=== PATIENT | female | born 1980 | race Caucasian/White ===

== ENCOUNTER 2016-10-24 08:03 | Emergency (ER) | payer OTHER, SELFPAY ==
[2016-10-24 08:14] VITALS: BMI 26.4
--- NOTE | 2016-10-24 08:27 | ED PDOC ---
Arrival/HPI - General Time Seen by Provider: 10/24/16 08:19 Historian: Patient - History of Present Illness Narrative History of Present Illness (Text): 10/24/16 08:15 A 36 year old female, whose past medical history includes Tonsillectomy, presents to the emergency room with complaints of skin blotches for a few hours. Patient reports that she woke up with chest pain and skin blotches on her left back, left lateral chest wall, and left breast. Patient notes that she has endured a significant amount of stress lately. Patient states that she had chicken pox as a child. Patient denies any headaches, dizziness, shortness of breath, fever, nausea, vomiting, diarrhea, or any other complaints. Time/Duration: 1-3 hours Symptom Onset: Sudden Symptom Course: Unchanged Quality: Other (Pain) Severity Level: Moderate Activities at Onset: Rest Context: Home Past Medical History - Provider Review Nursing Documentation Reviewed: Yes - Cardiac Hx Heart Murmur: Yes - Musculoskeletal/Rheumatological Hx Falls: No - Gastrointestinal Hx Gastroesophageal Reflux: (history of ulcerative colitis) - Psychiatric Hx Anxiety: Yes Hx Substance Use: No - Past Surgical History Past Surgical History: No Previous - Surgical History Hx Tonsillectomy: Yes - Suicidal Assessment Feels Threatened In Home Enviroment: No Family/Social History - Physician Review Nursing Documentation Reviewed: Yes Family/Social History: No Known Family HX Smoking Status: Never Smoked Hx Alcohol Use: No Hx Substance Use: No Hx Substance Use Treatment: No Allergies/Home Meds Allergies/Adverse Reactions: Allergies No Known Allergies Allergy (Verified 10/24/16 08:13) Home Medications: Home Meds Medication Instructions Recorded Confirmed No Known Home Med 10/24/16 10/24/16 Review of Systems - Physician Review All systems were reviewed & negative as marked: Yes - Review of Systems Constitutional: absent: Fevers Cardiovascular: Chest Pain (Due to blotches on skin) Gastrointestinal: absent: Diarrhea, Nausea, Vomiting Skin: Other (Skin blotches on the left back, left lateral chest wall, and left breast.) Neurological: absent: Headache, Dizziness Physical Exam Vital Signs Reviewed: Yes Temperature: Afebrile Pulse: Regular Respiratory Rate: Normal Appearance: Positive for: Well-Appearing, Non-Toxic, Comfortable Pain Distress: Mild Mental Status: Positive for: Alert and Oriented X 3 - Systems Exam Head: Present: Atraumatic, Normocephalic Mouth: Present: Moist Mucous Membranes Neck: Present: Normal Range of Motion Respiratory/Chest: Present: Clear to Auscultation, Good Air Exchange. No: Respiratory Distress, Accessory Muscle Use Cardiovascular: Present: Regular Rate and Rhythm Abdomen: Present: Normal Bowel Sounds. No: Tenderness, Distention, Peritoneal Signs Upper Extremity: Present: Normal Inspection. No: Cyanosis, Edema Lower Extremity: Present: Normal Inspection. No: Edema Neurological: Present: GCS=15, CN II-XII Intact, Speech Normal Skin: Present: Rashes (Scattered vesicular rashes in dermatome distribution around the left mid-back, left lateral chest wall, and left breast.) Psychiatric: Present: Alert, Oriented x 3, Normal Insight, Normal Concentration Medical Decision Making - Medication Orders Current Medication Orders: Discontinued Medications Ibuprofen (Motrin Tab) 800 mg PO STAT STA Stop: 10/24/16 08:22 - Scribe Statement The provider has reviewed the documentation as recorded by the Scribe John Singh All medical record entries made by the Scribe were at my direction and personally dictated by me. I have reviewed the chart and agree that the record accurately reflects my personal performance of the history, physical exam, medical decision making, and the department course for this patient. I have also personally directed, reviewed, and agree with the discharge instructions and disposition. Disposition/Present on Arrival - Present on Arrival Any Indicators Present on Arrival: No History of DVT/PE: No History of Uncontrolled Diabetes: No Urinary Catheter: No History Surgical Site Infection Following: None - Disposition Have Diagnosis and Disposition been Completed?: Yes Diagnosis: Herpes zoster Disposition: HOME/ ROUTINE Disposition Time: 08:22 Condition: GOOD Discharge Instructions (ExitCare): Shingles (ED) Additional Instructions: Please follow up with your doctor. Return to the ER for any worsening symptoms, rash that spreads to other parts of your body, or for any other concerns. Prescriptions: Valacyclovir HCl [Valtrex] 1,000 mg PO Q8H #21 tablet
[2016-10-24 08:33] VITALS: BP 98/70; RESP 16
[2016-10-24 08:42] VITALS: PULSE 60; O2SAT 99
[2016-10-24 08:47] VITALS: TEMP 98
== END 2016-10-24 09:03 | disposition home or self-care (01) ==
LOC: ED 08:03
DX: B02.9 Zoster without complications (principal)